=== PATIENT | male | born 1980 | race Caucasian/White ===

== ENCOUNTER 2020-12-26 10:26 | Emergency (ER) | payer SELFPAY ==
[~2020-12-26] VITALS: Ht 182.9 cm; Wt 96.2 kg
[2020-12-26 13:07] LABS: HEMATOCRIT 48.9 % (36.7-47.1); MEAN CORPUSCULAR HEMOGLOBIN 26.4 uug (23.8-33.4); MEAN CORPUSCULAR VOLUME 81.5 fL (73.0-96.2); PLATELET COUNT (AUTO) 192 K/uL (152-348)
[2020-12-26 13:09] LABS: CREATININE 0.9 mg/dL (0.6-1.3); POTASSIUM 3.7 mmol/L (3.5-5.1)
[2020-12-26 13:15] LABS: BILIRUBIN,TOTAL 0.8 mg/dL (0.2-1.0); TOTAL PROTEIN, SERUM 7.9 g/dL (6.4-8.2)
[2020-12-26] MEDS ORDERED: NAPR-1164 PO (14:13)
--- NOTE | 2020-12-26 14:42 | NUR ---
Gave pt RX and d/c instructions, pt verbalized understanding.
== END 2020-12-26 14:48 | disposition home or self-care (01) ==
LOC: ER 10:26
DX: M51.17 Intervertebral disc disorders with radiculopathy, lumbosacral region (principal); M16.0 Bilateral primary osteoarthritis of hip; M48.07 Spinal stenosis, lumbosacral region
CPT/HCPCS: 36415; 72131; 72192; 73551; 85025; 85651; A4663

== ENCOUNTER 2024-10-09 10:20 | Emergency (ER) | payer OTHER ==
[~2024-10-09] VITALS: Ht 185.4 cm; Wt 99.8 kg
[~2024-10-09 10:20] MED LIST: NAPR-1164 PO
[2024-10-09] MEDS ORDERED: ALBU2SYR3 PO (10:41)
[2024-10-09] MEDS ORDERED: PRED50TA PO (10:41)
[2024-10-09] MEDS ORDERED: predniSONE 50 MG TABLET ONE (10:42)
[2024-10-09] MEDS: predniSONE 50 MG TABLET PO ONE (10:44)
[2024-10-09 10:48] VITALS: BP 134/88; O2SAT 99
== END 2024-10-09 10:49 | disposition home or self-care (01) ==
LOC: ER 10:20
DX: J45.909 Unspecified asthma, uncomplicated (principal); Z79.52 Long term (current) use of systemic steroids
CPT/HCPCS: 99283; J7512; A4606; A4663